=== PATIENT | male | born 1975 | race Two or more races ===

== ENCOUNTER 2019-02-14 23:36 | Emergency (ER) | payer BC ==
[~2019-02-14] VITALS: Ht 172.7 cm; Wt 74.8 kg
[2019-02-14 23:47] VITALS: BP 123/94
[2019-02-14 23:59] LABS: Basophils # (auto) 0.1 uL; Basophils % (auto) 1.2 % (0.0-2.0); Eosinophils # (auto) 0.2 uL; Eosinophils % (auto) 2.5 % (0.0-7.0); Hematocrit 44.5 % (41.0-53.0); Hemoglobin 15.4 g/dL (13.5-17.5); Lymphocytes # (auto) 2.3 uL; Lymphocytes % (auto) 26.3 % (10.0-50.0); Mean Corpuscular Hemoglobin 32.3 pg (28.0-32.0); Mean Corpuscular Hgb Conc. 34.7 g/dL (32.0-36.0); Mean Corpuscular Volume 93.3 fL (80.0-100.0); Monocytes # (auto) 0.7 uL; Monocytes % (auto) 8.2 % (0.0-12.0); Neutrophils # (auto) 5.3 uL; Neutrophils % (auto) 61.8 % (37.0-80.0); Platelet Count (auto) 298 10^3/uL (140-450); Red Blood Cells 4.77 10^6/uL (4.5-5.90); Red Cell Distribution Width 13.1 % (11.8-14.3); White Blood Cell 8.6 10^3/uL (4.4-10.8)
[2019-02-15 00:10] LABS: Urine WBC None Seen /hpf (0 - 3)
[2019-02-15 00:16] LABS: Alanine Aminotransferase 32 U/L (16-61); Albumin 4.2 g/dL (3.4-5.0); Anion Gap 7 (5-15); Aspartate Aminotransferase 24 U/L (15-37); BUN/Creatinine Ratio 10.4; Blood Alcohol < 3.0 mg/dL (0-5); Blood Urea Nitrogen 12 mg/dL (7-18); Carbon Dioxide 29 mmol/L (21-32); Chloride 107 mmol/L (98-107); GFR African American 89 mL/min; GFR Non-African American 73 mL/min; Glucose 80 mg/dL (74-106); Potassium 3.8 mmol/L (3.5-5.1); Sodium 143 mmol/L (136-145)
[2019-02-15 00:18] LABS: Salicylate < 1.7 mg/dL (2.8-20.0)
[2019-02-15 00:19] LABS: Alkaline Phosphatase 98 U/L (45-117); Total Protein 7.9 g/dL (6.4-8.2)
[2019-02-15 00:20] LABS: Acetaminophen < 2.0 ug/mL (10-30)
[2019-02-15 00:36] LABS: Urine Bacteria NONE SEEN /hpf (None Seen); Urine Blood Negative /uL (Negative); Urine Mucus FEW (None Seen); Urine Specific Gravity 1.024 (1.001-1.035)
[2019-02-15 00:39] LABS: Alcohol, Urine < 3.0 mg/dL (0-5); Amphetamine Screen, Urine NEGATIVE (NEGATIVE); Barbiturate Scree,Urine NEGATIVE (NEGATIVE); Benzodiazephine Screen, Urine NEGATIVE (NEGATIVE); Cocaine Screen, Urine NEGATIVE (NEGATIVE); Opiate Scree,Urine NEGATIVE (NEGATIVE); Phencyclidine Screen, Urine NEGATIVE (NEGATIVE)
[2019-02-15 00:58] LABS: Cannabinoid Screen, Urine POSITIVE (NEGATIVE)
== END 2019-02-15 03:42 | disposition left against medical advice (07) ==
LOC: ER 23:42
DX: F41.9 Anxiety disorder, unspecified (principal); Z53.21 Procedure and treatment not carried out due to patient leaving prior to being seen by health care provider
CPT/HCPCS: 36415; 80053; 80307; 80320; 80329; 81001; 85025

== ENCOUNTER 2020-02-09 14:00 | Emergency (ER) | payer BC ==
[~2020-02-09] VITALS: Ht 170.2 cm; Wt 74.8 kg
[2020-02-09 14:18] VITALS: BP 122/89
== END 2020-02-09 16:07 | disposition home or self-care (01) ==
LOC: ER 14:00
DX: S60.211A Contusion of right wrist, initial encounter (principal); W22.8XXA Striking against or struck by other objects, initial encounter; Y93.89 Activity, other specified; Y92.89 Other specified places as the place of occurrence of the external cause; Y99.8 Other external cause status
CPT/HCPCS: 73110

== ENCOUNTER 2022-03-28 00:13 | Emergency (ER) | payer BC ==
[~2022-03-28] VITALS: Ht 170.2 cm; Wt 72.7 kg
[2022-03-28] MEDS ORDERED: ACETAMINOPHEN 500 MG TAB PO ONE (01:00)
[2022-03-28 01:17] VITALS: BP 109/73
== END 2022-03-28 01:18 | disposition home or self-care (01) ==
LOC: ER 00:13
DX: S01.01XA Laceration without foreign body of scalp, initial encounter (principal); W18.39XA Other fall on same level, initial encounter; Y93.89 Activity, other specified; Y92.89 Other specified places as the place of occurrence of the external cause; Y99.8 Other external cause status
CPT/HCPCS: 12002

== ENCOUNTER 2022-04-06 23:52 | Emergency (ER) | payer BC ==
[~2022-04-06] VITALS: Ht 170.2 cm; Wt 72.0 kg
[2022-04-06 23:52] VITALS: BP 119/77
== END 2022-04-07 01:28 | disposition home or self-care (01) ==
LOC: ER 23:52
DX: S01.01XD Laceration without foreign body of scalp, subsequent encounter (principal); W18.39XD Other fall on same level, subsequent encounter

== ENCOUNTER 2023-06-04 14:09 | Emergency (ER) | payer BC, OTHER ==
[~2023-06-04] VITALS: Ht 170.2 cm; Wt 72.0 kg
[2023-06-04] MEDS ORDERED: IBUP-1456 PO (15:25)
[2023-06-04] MEDS ORDERED: HYDR-4902 PO (15:51)
[2023-06-04] MEDS: IBUPROFEN 800 MG TAB PO ONE (18:39)
[2023-06-04 18:41] VITALS: BP 110/83; PULSE 100; RESP 18; TEMP 97.9; O2SAT 97
== END 2023-06-04 18:42 | disposition home or self-care (01) ==
LOC: EDBD 14:09 → ER 14:09
DX: S80.12XA Contusion of left lower leg, initial encounter (principal); S20.223A Contusion of bilateral back wall of thorax, initial encounter; Z79.899 Other long term (current) drug therapy; V29.99XA Rider (driver) (passenger) of other motorcycle injured in unspecified traffic accident, initial encounter; Y93.I9 Activity, other involving external motion; Y92.89 Other specified places as the place of occurrence of the external cause; Y99.8 Other external cause status
CPT/HCPCS: 72070; 73590